=== PATIENT | female | born 1980 | race American Indian/Alaskan Native ===

== ENCOUNTER 2018-12-13 10:50 | Outpatient (CLI) | payer MEDICAID ==
[2018-12-13 11:17] VITALS: BP 114/59
== END 2018-12-13 12:15 | disposition home or self-care (01) ==
LOC: TRG 10:50
PROVIDERS: ATTEND Obstetrics & Gynecology
DX: O26.853 Spotting complicating pregnancy, third trimester (principal); Z3A.39 39 weeks gestation of pregnancy
CPT/HCPCS: 59025

== ENCOUNTER 2018-12-15 08:25 | Inpatient (IN) | payer MEDICAID ==
[2018-12-15] MEDS ORDERED: STADOL IV PRN (10:16)
[2018-12-15] MEDS ORDERED: ZOFRAN IV PRN (10:16)
[2018-12-15] MEDS ORDERED: XYLOCAINE 2% INFILTRATI ONE (10:16)
[2018-12-15] MEDS ORDERED: BRETHINE SUB-Q PRN (10:16)
[2018-12-15] MEDS ORDERED: MINERAL OIL PO PRN (10:16)
[2018-12-15] MEDS ORDERED: SUBLIMAZE IV PRN (10:16)
--- NOTE | 2018-12-15 10:31 | History and Physical Report ---
History of Present Illness Date of examination: 12/15/18 Date of admission: 12/15/18 08:25 Chief complaint: Induction of labor secondary to CHTN and AMA History of present illness: 38 yo, @ 39.9 weeks gestation. Initiated care with [facility] at 7.4 wks. Care was co-manged by [facility] specialist. She presents to [facility] for IOL secondary to CHTN and AMA status. She reports + FM. Denies any VB or LOF. Her has been complicated by CHTN, Sickle cell trait and AMA. Labs: AB +, antibody negative; Rubella immune; VDRL non-immune; HBsAg negative; HIV negative; HSV-2 negative; Varicella immune; Vit D - 4.8; Gc/Chlamydia negative; Trichomonas negative; MSAFP negative; Protein total - 5.6; 24 hr protein 120; 1 hr gtt - 123; GBS negative. Past History Past Medical History: hypertension, other (Sickle cell trait) Past Surgical History: no surgical history Family/Genetic History: hypertension Social history: , lives with family, full code. denies: smoking, alcohol abuse, prescription drug abuse, IV drug use - Obstetrical History Expected Date of Delivery: 12/16/18 Actual Gestation: 39 Week(s) 6 Day(s) : 4 Para: 3 Hx # Term Pregnancies: 3 Number of Pregnancies: 0 Spontaneous Abortions: 0 Induced : 0 Number of Living Children: 3 #1 Infant Gender: Female year: 2,003 Method of Delivery: Vaginal Complications: none #2 Gender: Female year: 2,008 Birthweight: 4.082 kg Method of Delivery: Vaginal Complications: none #3 Gender: Female year: 2,010 Birthweight: 3.175 kg Method of Delivery: Vaginal Complications: none Medications and Allergies Allergies Allergy/AdvReac Type Severity Reaction Status Date / Time No Known Allergies Allergy Verified 12/13/18 10:54 Home Medications Medication Instructions Recorded Confirmed Last Taken Type Labetalol [Labetalol 200mg TAB] 1 tab PO DAILY 12/11/18 12/13/18 12/13/18 10:00 History 1 Vit-Fe Fumar-FA [ 1 tab PO QDAY 12/13/18 12/13/18 12/12/18 09:00 History Vitamin] 1 Active Meds: Active Medications Ephedrine Sulfate (Ephedrine Sulfate) 10 mg IV Q2M PRN PRN Reason: Hypotension Oxytocin/Sodium Chloride (Pitocin/Ns 20 Unit/1000ml Drip) 20 units in 1,000 mls @ 125 mls/hr IV DIRECT JOSE Lactated Ringer's (Lactated Ringers) 1,000 mls @ 125 mls/hr IV DIRECT JOSE Mineral Oil (Mineral Oil) 30 ml PO QHS PRN PRN Reason: Constipation Review of Systems All systems: negative Genitourinary: contractions (irregular, not very painful) - Vital Signs Vital signs: Vital Signs Pulse Pulse Ox 97 H 100 12/15/18 08:49 12/15/18 08:49 Temp Pulse Resp BP Pulse Ox 89 16 116/79 99 12/15/18 09:27 12/15/18 09:27 12/15/18 09:27 12/15/18 09:27 - Physical Exam Breasts: Positive: deferred Cardiovascular: Regular rate Lungs: Positive: Normal air movement Abdomen: Positive: other (gravid) Genitourinary (Female): Positive: normal external genitalia, normal perenium Vagina: Positive: normal moisture Cervix: Positive: other (very posterior) Uterus: Positive: other (S=D) Extremities: Positive: normal Deep Tendon Reflex Grade: Normal +2 - Obstetrical FHR: category 1 Uterine Contraction Monitor Mode: External Cervical Dilatation: 1.5 Cervical Effacement Percentage: 50 station: -3 Uterine Contraction Pattern: Irregular Uterine Tone Measurement Phase: Resting Uterine Contraction Intensity: Mild Results All other labs normal. Assessment and Plan - Patient Problems (1) Encounter for induction of labor Current Visit: Yes Status: Acute Plan to address problem: Admit to L & D Cervidil, vaginally x 12 hrs as tolerated Pain meds as desired Anticipate (2) 39 weeks gestation of Current Visit: Yes Status: Acute (3) Advanced maternal age (AMA) in Current Visit: Yes Status: Acute (4) Chronic hypertension Current Visit: Yes Status: Acute Plan to address problem: Monitor B/P q hr Notify provider for B/Ps > 160/110
[2018-12-15] MEDS ORDERED: PITOCin/NS 20 UNIT/1000ML DRIP 20 UNITS/1,000 ML BAG IV SCH (11:00)
[2018-12-15] MEDS ORDERED: CERVIDIL VG ONE (11:00)
[2018-12-15] MEDS: LACTATED RINGERS 1,000 ML IV SCH ×2 (11:20→18:42)
[2018-12-15 11:36] LABS: Hematocrit 35.9 % (30.3-42.9); Hemoglobin 12.4 gm/dl (10.1-14.3); Mean Corpuscular HGB Conc 35 % (30-34); Mean Corpuscular Volume 95 fl (79-97); Red Cell Distribution Width 13.8 % (13.2-15.2)
[2018-12-15 12:44] LABS: Platelet Count 150 K/mm3 (140-440)
--- NOTE | 2018-12-15 19:59 | Event Note ---
Date: 12/15/18 Assumed care of patient at 17:30. Patient is undergoing cervical ripening and induction of labor due to chronic hypertension. Discussed with patient risks and benefits of cervical ripening and Pitocin induction of labor. Patient consented to cervical ripening and Pitocin induction of labor. US ordered for EFW. Category 1 heart rate tracing. BPs stable.
--- NOTE | 2018-12-15 22:03 | Ultrasound Report ---
ULTRASOUND OBSTETRIC 12/15/2018 Indication: Evaluate well-being. History of labor. COMPARISON: None. Findings: There is a single intrauterine . BPD = 9.4 cm = 38 weeks, 0 day(s). Head circumference = 33.1 cm = 37 weeks, 5 day(s). Abdominal circumference = 34.3 cm = 38 weeks, 1 day(s). Femur length = 7.5 cm = 38 weeks, 4 day(s). Overall estimated sonographic age = 38 weeks, 1 day(s). heart rate is 135 beats per minute. Estimated weight is 3427 grams position is cephalic. Placenta is posterior and grade 2 . Amniotic fluid volume within normal limits. Impression: 1. Single living intrauterine with estimated sonographic age of 38 weeks, 1 day(s). Signer Name: Isatu Reed MD Signed: 12/15/2018 9:58 PM Workstation Name: [id number]
--- NOTE | 2018-12-16 00:06 | Event Note ---
Date: 12/16/18 Cervidil removed. SVE 2-3/60/-3. Contractions irregular. Category 1 heart rate tracing.
[2018-12-16] MEDS ORDERED: PITOCin/NS 30 UNIT/500ML 30,000 MILLIUNITS/500 ML BAG IV ONE (03:43)
[2018-12-16] MEDS: LACTATED RINGERS 1,000 ML IV SCH ×3 (04:15→19:23)
--- NOTE | 2018-12-16 07:18 | Progress Note ---
Assessment and Plan A: at 40 weeks gestation. Chronic hypertension. GBS negative. P: Pitocin induction of labor. Anticipate vaginal . Subjective - Subjective Date of service: 12/16/18 Principal diagnosis: at 40 weeks gestation; chronic HTN Interval history: Patient is having labor induced at term due to chronic hypertension. Patient had cervidil removed at midnight. She is now receiving Pitocin for induction of labor. Denies LOF or VB. Reports active movement. Patient reports: movement normal, contractions, no new complaints, no loss of fluid, no vaginal bleeding Objective - Vital Signs Vital Signs: Vital Signs - 12hr 12/15/18 12/15/18 12/15/18 19:19 19:24 19:29 Pulse Rate 82 75 75 Blood Pressure O2 Sat by Pulse 98 99 100 Oximetry 12/15/18 12/15/18 12/15/18 19:34 19:39 19:44 Pulse Rate 81 73 88 Blood Pressure O2 Sat by Pulse 100 99 99 Oximetry 12/15/18 12/15/18 12/15/18 19:49 19:54 19:59 Pulse Rate 86 68 89 Blood Pressure O2 Sat by Pulse 98 98 99 Oximetry 12/15/18 12/15/18 12/15/18 20:04 20:09 20:14 Pulse Rate 82 77 78 Blood Pressure O2 Sat by Pulse 97 98 98 Oximetry 12/15/18 12/15/18 12/15/18 20:19 20:24 20:29 Pulse Rate 77 71 72 Blood Pressure O2 Sat by Pulse 99 98 100 Oximetry 12/15/18 12/15/18 12/15/18 20:34 20:39 20:44 Pulse Rate 87 74 71 Blood Pressure O2 Sat by Pulse 100 99 99 Oximetry 12/15/18 12/15/18 12/15/18 20:49 20:54 20:59 Pulse Rate 81 70 70 Blood Pressure O2 Sat by Pulse 97 100 99 Oximetry 12/15/18 12/15/18 12/15/18 21:04 21:09 21:14 Pulse Rate 65 76 75 Blood Pressure O2 Sat by Pulse 98 99 98 Oximetry 12/15/18 12/15/18 12/15/18 21:19 21:24 21:29 Pulse Rate 75 80 87 Blood Pressure O2 Sat by Pulse 98 99 100 Oximetry 12/15/18 12/15/18 12/15/18 21:34 21:39 21:44 Pulse Rate 88 79 70 Blood Pressure O2 Sat by Pulse 99 99 100 Oximetry 12/15/18 12/15/18 12/15/18 21:49 21:54 21:59 Pulse Rate 78 80 66 Blood Pressure O2 Sat by Pulse 100 99 99 Oximetry 12/15/18 12/15/18 12/15/18 22:04 22:09 22:14 Pulse Rate 69 68 73 Blood Pressure O2 Sat by Pulse 99 99 100 Oximetry 12/15/18 12/15/18 12/15/18 22:19 22:24 22:38 Pulse Rate 73 83 76 Blood Pressure 134/76 O2 Sat by Pulse 99 100 Oximetry 12/15/18 12/15/18 12/15/18 22:39 22:44 22:49 Pulse Rate 90 65 63 Blood Pressure O2 Sat by Pulse 99 98 97 Oximetry 12/15/18 12/15/18 12/15/18 22:54 22:59 23:04 Pulse Rate 72 69 68 Blood Pressure O2 Sat by Pulse 97 98 97 Oximetry 12/15/18 12/15/18 12/15/18 23:09 23:14 23:19 Pulse Rate 62 73 69 Blood Pressure O2 Sat by Pulse 99 98 97 Oximetry 12/15/18 12/15/18 12/15/18 23:24 23:29 23:34 Pulse Rate 89 63 76 Blood Pressure O2 Sat by Pulse 97 97 97 Oximetry 12/15/18 12/15/18 12/15/18 23:39 23:44 23:55 Pulse Rate 77 89 83 Blood Pressure O2 Sat by Pulse 97 97 100 Oximetry 12/16/18 12/16/18 12/16/18 00:00 00:05 00:10 Pulse Rate 78 91 H 63 Blood Pressure O2 Sat by Pulse 100 99 99 Oximetry 12/16/18 12/16/18 12/16/18 00:15 00:20 00:25 Pulse Rate 79 62 65 Blood Pressure O2 Sat by Pulse 100 99 99 Oximetry 12/16/18 12/16/18 12/16/18 00:30 00:35 00:40 Pulse Rate 67 64 82 Blood Pressure O2 Sat by Pulse 99 99 99 Oximetry 12/16/18 12/16/18 12/16/18 00:46 00:51 00:56 Pulse Rate 89 89 92 H Blood Pressure O2 Sat by Pulse 97 99 98 Oximetry 12/16/18 12/16/18 12/16/18 01:01 01:06 01:11 Pulse Rate 79 77 75 Blood Pressure O2 Sat by Pulse 97 97 96 Oximetry 12/16/18 12/16/18 12/16/18 01:16 01:21 01:26 Pulse Rate 73 78 62 Blood Pressure O2 Sat by Pulse 98 97 99 Oximetry 12/16/18 12/16/18 12/16/18 01:31 01:36 01:41 Pulse Rate 68 82 67 Blood Pressure O2 Sat by Pulse 98 98 98 Oximetry 12/16/18 12/16/18 12/16/18 01:46 01:52 01:57 Pulse Rate 98 H 103 H 82 Blood Pressure O2 Sat by Pulse 100 100 100 Oximetry 12/16/18 12/16/18 12/16/18 02:02 02:07 02:12 Pulse Rate 105 H 84 92 H Blood Pressure O2 Sat by Pulse 99 100 99 Oximetry 12/16/18 12/16/18 12/16/18 02:17 02:22 02:27 Pulse Rate 64 74 69 Blood Pressure O2 Sat by Pulse 99 99 100 Oximetry 12/16/18 12/16/18 12/16/18 02:32 05:02 05:07 Pulse Rate 99 H 80 76 Blood Pressure O2 Sat by Pulse 100 100 100 Oximetry 12/16/18 12/16/18 12/16/18 05:12 05:17 05:22 Pulse Rate 74 77 67 Blood Pressure O2 Sat by Pulse 98 97 98 Oximetry 12/16/18 12/16/18 12/16/18 05:27 05:32 05:37 Pulse Rate 67 73 67 Blood Pressure O2 Sat by Pulse 98 98 97 Oximetry 12/16/18 12/16/18 12/16/18 05:42 05:47 05:52 Pulse Rate 77 65 68 Blood Pressure O2 Sat by Pulse 97 98 98 Oximetry 12/16/18 12/16/18 12/16/18 05:57 06:02 06:07 Pulse Rate 69 75 84 Blood Pressure O2 Sat by Pulse 98 99 97 Oximetry 12/16/18 12/16/18 12/16/18 06:12 06:17 06:22 Pulse Rate 76 70 71 Blood Pressure O2 Sat by Pulse 97 97 98 Oximetry 12/16/18 12/16/18 12/16/18 06:27 06:32 06:37 Pulse Rate 97 H 72 94 H Blood Pressure O2 Sat by Pulse 100 100 99 Oximetry 12/16/18 12/16/18 12/16/18 06:42 06:47 06:52 Pulse Rate 74 88 77 Blood Pressure O2 Sat by Pulse 98 98 100 Oximetry 12/16/18 12/16/18 12/16/18 06:54 06:57 07:02 Pulse Rate 64 80 72 Blood Pressure 118/63 O2 Sat by Pulse 100 100 Oximetry 12/16/18 12/16/18 07:07 07:12 Pulse Rate 75 68 Blood Pressure O2 Sat by Pulse 100 98 Oximetry - Exam Abdomen: Present: normal appearance, soft. Absent: distention, tenderness, guarding, rigidity Uterus: Present: normal, fundal height above umbilicus. Absent: tenderness FHR: category 1 Uterine Contraction Monitor Mode: External Uterine Contraction Frequency (min): Q 2-4 minutes Uterine Contraction Intensity: Mild Extremities: normal - Labs Labs: Abnormal Labs 12/15/18 10:43 MCH 33 H MCHC 35 H Laboratory Results - last 24 hr 12/15/18 12/15/18 10:43 10:43 WBC 6.3 RBC 3.80 Hgb 12.4 Hct 35.9 MCV 95 MCH 33 H MCHC 35 H RDW 13.8 Plt Count 150 Blood Type AB POSITIVE Antibody Screen Negative
[2018-12-16] MEDS: PITOCin/NS 30 UNIT/500ML 30 UNITS/500 ML BAG IV SCH ×2 (10:31→20:01)
[2018-12-16] MEDS ORDERED: NORMODYNE PO SCH (22:00)
--- NOTE | 2018-12-17 02:49 | Event Note ---
Date: 12/17/18 SVE: /-3/BBOW.
[2018-12-17] MEDS ORDERED: NORCO 5/325 PO PRN (05:11)
[2018-12-17] MEDS ORDERED: DULCOLAX PR PRN (05:11)
[2018-12-17] MEDS ORDERED: LANSINOH TP PRN (05:11)
[2018-12-17] MEDS ORDERED: BENADRYL PO PRN (05:11)
[2018-12-17] MEDS ORDERED: MILK OF MAGNESIA PO PRN (05:11)
[2018-12-17] MEDS ORDERED: TUCKS PAD TP PRN (05:11)
--- NOTE | 2018-12-17 05:22 | Procedure Note ---
OB Delivery Note - Delivery Date of Delivery: 12/17/18 Surgeon: JAIME SCHRADER Estimated blood loss: 200cc - Vaginal Delivery presentation: vertex Delivery position: OA Intrapartum events: meconium Delivery induction: oxytocin Delivery augmentation: rupture of membranes Delivery monitor: external FHT, external uterine Route of delivery: Delivery placenta: spontaneous Delivery cord: 3 umbilical vessels Episiotomy: none Delivery laceration: none Anesthesia: none Delivery comments: bradycardia noted when cervix became completely dilated; Dr. Toure was called to birthing room to expedite but patient was able to push quickly and well with direction and baby was delivered spontaneously. Spontaneous vaginal delivery at 04:53 of liveborn male infant weighing 8 lb. 3 oz over intact perineum with apgars of 7/9. Suprapubic pressure given to facilitate delivery of anterior shoulder. Meconium stained amniotic fluid. 3 vessel cord double clamped and cut and baby taken to radiant warmer for suctioning by NICU team who was called to delivery. Spontaneous cry and respirations. Spontaneous delivery of intact placenta and membranes by perez mechanism. EBL 200 cc. Pitocin to IV fluids after delivery of placenta. Fundus firm and midline. Vaginal sweep negative. No lacerations noted. Sponge count correct. Mother and baby stable.
[2018-12-17] MEDS ORDERED: SODIUM CHLORIDE FLUSH SYRINGE 10 ML IV NR (06:00)
[2018-12-17] MEDS: IBUPROFEN PO SCH ×3 (10:16→18:00)
[2018-12-17 17:14] LABS: Hematocrit 31.9 % (30.3-42.9); Hemoglobin 11.1 gm/dl (10.1-14.3)
[2018-12-17] MEDS ORDERED: MYLICON PO PRN (18:21)
[2018-12-17] MEDS: TYLENOL PO PRN (21:34)
[2018-12-17] MEDS: NORMODYNE PO SCH (22:03)
--- NOTE | 2018-12-18 09:59 | Progress Note ---
Assessment and Plan - Patient Problems (1) Status post normal vaginal delivery Current Visit: Yes Status: Acute Plan to address problem: PPD 1 - stable Continue routine PP orders Discharge to home 12/19/18 Follow up at [facility] in 1-2 weeks for Control Consult and in 6 weeks for exam (2) Chronic hypertension Current Visit: Yes Status: Acute Plan to address problem: Asymptomatic Continue antihypertensive therapy Subjective - Subjective Date of service: 12/18/18 Principal diagnosis: PPD #1; s/p , Chronic HTN Interval history: see H&P, Event Notes, OB Progress Note and OB Delivery Procedure Note Patient reports: appetite normal, voiding normally, pain well controlled, ambulating normally, other (denies headache, visual disturbances or RUQ pain), no dizzy ambulation [place]: doing well, nursing well, bottle feeding Objective - Vital Signs Latest vital signs: Vital Signs Temp Pulse Resp BP Pulse Ox 12/18/18 00:32 98.8 F 71 18 126/79 98 12/17/18 22:03 82 131/75 12/17/18 15:50 99.5 F 87 18 132/71 97 12/17/18 12:02 97.8 F 74 18 113/65 98 Intake and Output 12/17/18 12/18/18 12/18/18 23:59 07:59 15:59 Intake Total 840 480 Output Total 1050 Balance -210 480 Intake: Oral 480 Intake, Free Water 360 480 Output: Urine 1050 Void 1050 Other: Total, Intake Amount 480 Total, Output Amount 450 # Voids Void 3 1 - Exam Cardiovascular: Present: Regular rate Lungs: Present: Clear to auscultation, Normal air movement Abdomen: Present: normal appearance, soft Vulva: both: normal Uterus: Present: normal, firm, fundal height at umbilicus Extremities: Present: edema (BLE, trace) Comments: small lochia
--- NOTE | 2018-12-18 10:06 | Discharge Summary ---
Providers - Providers Date of Admission: 12/15/18 08:25 Date of discharge: 12/18/18 Attending physician: AMEENA RILEY MD Primary care physician: [facility] Hospitalization Reason for admission: induction of labor, IUP at term Delivery: Episiotomy: none Laceration: none Other procedures: none complications: none Discharge diagnosis: IUP at term delivered [place] baby: male Hospital course: Uncomplicated Condition at discharge: Stable Disposition: DC-01 TO HOME OR SELFCARE - Discharge Diagnoses (1) Status post normal vaginal delivery Status: Acute (2) Chronic hypertension Status: Acute Comment: Reviewed signs and symptoms of Superimposed pre- eclampsia Continue Labetalol 200mg PO BID Plan - Provider Discharge Summary Activity: routine, no sex for 6 weeks, no heavy lifting 4 weeks, no strenuous exercise Diet: routine Instructions: routine Additional instructions: [] Smoking cessation referral if applicable(refer to patient education folder for contact #) [] Refer to [facility] Booklet Call your doctor immediately for: * Fever > 100.5 * Heavy vaginal bleeding ( >1 pad per hour) * Severe persistent headache * Shortness of breath * Reddened, hot, painful area to leg or breast * Drainage or odor from incision. * Keep incision clean and dry at all times and follow doctor's instructions regarding bathing/showering - Follow up plan Follow up: PRIMARY CARE, [Primary Care Provider] - 14 Days (Follow up at [facility] in 1-2 weeks for Control Consult and in 6 weeks for exam)
[2018-12-18] MEDS: NORMODYNE PO SCH ×2 (10:09→21:58)
[2018-12-18] MEDS: IBUPROFEN PO SCH ×3 (11:42→17:37)
[2018-12-18] MEDS: TYLENOL PO PRN (20:02)
[2018-12-19] MEDS: IBUPROFEN PO SCH ×4 (00:41→18:39)
[2018-12-19] MEDS: NORMODYNE PO SCH ×2 (09:55→22:48)
[2018-12-19] MEDS: TYLENOL PO PRN (16:09)
[2018-12-20 00:58] LABS: Bilirubin,Urine NEG (Negative); Blood,Urine LG (Negative); Color,Urine Red (Yellow); Urobilinogen,Urine < 2.0 mg/dL (<2.0)
[2018-12-20 01:09] LABS: RBC,Urine > 182.0 /HPF (0.0-6.0); WBC,Urine > 182.0 /HPF (0.0-6.0)
[2018-12-20 01:10] LABS: Mucus,Urine Few /HPF
[2018-12-20] MEDS: IBUPROFEN PO SCH ×3 (01:33→12:00)
[2018-12-20 06:12] LABS: Hematocrit 34.3 % (30.3-42.9); Mean Corpuscular HGB Conc 35 % (30-34); Mean Corpuscular Volume 93 fl (79-97); Platelet Count 193 K/mm3 (140-440); Red Blood Count 3.67 M/mm3 (3.65-5.03); Red Cell Distribution Width 13.5 % (13.2-15.2)
[2018-12-20 06:41] LABS: Alanine Aminotransferase 17 units/L (7-56)
[2018-12-20 07:01] LABS: Uric Acid 5.4 mg/dL (3.5-7.6)
[2018-12-20 09:19] VITALS: BP 145/77
[2018-12-20] MEDS: NORMODYNE PO SCH (10:00)
== END 2018-12-20 13:00 | disposition home or self-care (01) | DRG 774 ==
LOC: LD 08:25 → OB 12-17 07:17
PROVIDERS: ADMIT Obstetrics & Gynecology; ATTEND Obstetrics & Gynecology
PROC: 10E0XZZ Delivery of Products of Conception, External Approach (ICD-10-PCS; principal; 2018-12-17)
PROC: 3E0P7VZ Introduction of Hormone into Female Reproductive, Via Natural or Artificial Opening (ICD-10-PCS; 2018-12-17)
PROC: 3E033VJ Introduction of Other Hormone into Peripheral Vein, Percutaneous Approach (ICD-10-PCS; 2018-12-17)
DX: O10.92 Unspecified pre-existing hypertension complicating childbirth (principal); O77.0 Labor and delivery complicated by meconium in amniotic fluid; O76 Abnormality in fetal heart rate and rhythm complicating labor and delivery; Z3A.39 39 weeks gestation of pregnancy; Z37.0 Single live birth
CPT/HCPCS: 36415; 59200; 76816; 81001; 82565; 83615; 84450; 84460; 84550; 85014; 85018; 85027; 86592; 86850; 86900; 86901; G0378; A6250; J0595; J2590; J7120

== ENCOUNTER 2019-01-09 11:26 | Emergency (ER) | payer MEDICAID ==
--- NOTE | 2019-01-09 11:53 | Event Note ---
ED Screening Note Date of service: 01/09/19 Time: 11:50 ED Screening Note: 39 y o female 2 weeks PP with PMH of chronic HTN presents with high blood pressure sent here from her obgyn current meds: labetalol, procardia denies cp,sob,fraire, abd pain This initial assessment/diagnostic orders/clinical plan/treatment(s) is/are subject to change based on patients health status, clinical progression and re- assessment by fellow clinical providers in the ED. Further treatment and workup at subsequent clinical providers discretion. Patient/guardian urged not to elope from the ED as their condition may be serious if not clinically assessed and managed. Initial orders include: cbc,cmp clonidine 0.2mg in room
[2019-01-09 12:16] LABS: Basophils # (Auto) 0.1 K/mm3 (0.0-0.1); Basophils % (Auto) 0.8 % (0.0-1.8); Eosinophils # (Auto) 0.1 K/mm3 (0.0-0.4); Eosinophils % (Auto) 1.1 % (0.0-4.3); Hematocrit 42.8 % (30.3-42.9); Hemoglobin 14.9 gm/dl (10.1-14.3); Lymphocytes # (Auto) 1.9 K/mm3 (1.2-5.4); Lymphocytes % (Auto) 29.2 % (13.4-35.0); Mean Corpuscular HGB Conc 35 % (30-34); Mean Corpuscular Volume 89 fl (79-97); Monocytes # (Auto) 0.6 K/mm3 (0.0-0.8); Monocytes % (Auto) 9.8 % (0.0-7.3); Platelet Count 286 K/mm3 (140-440); Red Blood Count 4.81 M/mm3 (3.65-5.03); Red Cell Distribution Width 12.7 % (13.2-15.2)
[2019-01-09 12:38] LABS: Alanine Aminotransferase 23 units/L (7-56); Albumin 4.8 g/dL (3.9-5); BUN/Creatinine Ratio 12; Blood Urea Nitrogen 7 mg/dL (7-17); Calcium 10.5 mg/dL (8.4-10.2); Hemolysis Index 8
[2019-01-09 13:15] LABS: Bilirubin,Urine NEG (Negative); Blood,Urine SM (Negative); Color,Urine Colorless (Yellow); Protein,Urine <15 mg/dL mg/dL (Negative); RBC,Urine < 1.0 /HPF (0.0-6.0); Urobilinogen,Urine < 2.0 mg/dL (<2.0); WBC,Urine < 1.0 /HPF (0.0-6.0)
--- NOTE | 2019-01-09 14:39 | Emergency Department Report ---
ED General Adult HPI - General Chief complaint: High BP Stated complaint: HYPERTENSION Time Seen by Provider: 01/09/19 12:25 Source: patient, family Mode of arrival: Ambulatory Limitations: No Limitations - History of Present Illness Initial comments: 39-year-old female with a past medical history of hypertension with vaginal delivery possibly 3 weeks ago presents to the hospital with complaints of elevated blood pressure. Patient went to her [facility] office for follow-up visits and she was sent to the ER due to BP elevation. Patient takes labetalol 100 mg 3 times a day, Procardia 30 mg daily, hydrochlorothiazide 12.5 mg daily, and by mouth potassium 10 mEq daily. Patient also take Xanax 0.25 mg daily and was prescribed 15 tablets on January 01. Patient states she's been compliant with her medications. She is almost due for her second dose of labetalol at time of my evaluation. Patient denies headache, blurred vision, leg edema, chest pain, or shortness of breath. Patient has a history of hypertension and was on blood pressure medications prior to her and throughout. She was recently admitted for preeclampsia and was discharged on January 01 on the medications listed above. Patient's been taking her blood pressure at home and states his been in normal range. Patient's [facility]: [facility]. PMD: Dr. Chan Severity scale (0 -10): 0 - Related Data Home Medications Medication Instructions Recorded Confirmed Last Taken Vit-Fe Fumar-FA [ 1 tab PO QDAY 12/13/18 12/29/18 12/27/18 09:00 Vitamin] Previous Rx's Medication Instructions Recorded Last Taken Type ALPRAZolam [Xanax TAB] 0.25 mg PO QDAY #15 tablet 01/01/19 Unknown Rx Labetalol HCl [Labetalol 300mg TAB] 300 mg PO BID #30 tablet 01/01/19 Unknown Rx Labetalol [Labetalol 100mg TAB] 300 mg PO Q8H #90 tablet 01/01/19 Unknown Rx Labetalol [Labetalol 200mg TAB] 1 tab PO DAILY 60 Days #60 tablet 01/01/19 Unknown Rx NIFEdipine XL [Procardia Xl] 30 mg PO QDAY #20 tablet 01/01/19 Unknown Rx Potassium Chloride [K-Dur] 10 meq PO QDAY 30 Days #15 tablet 01/01/19 Unknown Rx hydroCHLOROthiazide [HCTZ] 12.5 mg PO QDAY 90 Days #90 capsule 01/01/19 Unknown Rx Allergies Allergy/AdvReac Type Severity Reaction Status Date / Time No Known Allergies Allergy Verified 12/13/18 10:54 ED Review of Systems ROS: Stated complaint: HYPERTENSION Other details as noted in HPI Comment: All other systems reviewed and negative ED Past Medical Hx - Past Medical History Previous Medical History?: Yes Hx Hypertension: Yes (CHTN) Hx Congestive Heart Failure: No Hx Diabetes: No Hx Deep Vein Thrombosis: No Hx Renal Disease: No Hx Sickle Cell Disease: Yes (TRAIT) Hx Seizures: No Hx Asthma: No Hx COPD: No Hx HIV: No - Surgical History Past Surgical History?: No - Social History Smoking Status: Never Smoker Substance Use Type: Alcohol - Medications Home Medications: Home Medications Medication Instructions Recorded Confirmed Last Taken Type Vit-Fe Fumar-FA [ 1 tab PO QDAY 12/13/18 12/29/18 12/27/18 09:00 History Vitamin] ALPRAZolam [Xanax TAB] 0.25 mg PO QDAY #15 tablet 01/01/19 Unknown Rx Labetalol HCl [Labetalol 300mg TAB] 300 mg PO BID #30 tablet 01/01/19 Unknown Rx Labetalol [Labetalol 100mg TAB] 300 mg PO Q8H #90 tablet 01/01/19 Unknown Rx Labetalol [Labetalol 200mg TAB] 1 tab PO DAILY 60 Days #60 tablet 01/01/19 Unknown Rx NIFEdipine XL [Procardia Xl] 30 mg PO QDAY #20 tablet 01/01/19 Unknown Rx Potassium Chloride [K-Dur] 10 meq PO QDAY 30 Days #15 tablet 01/01/19 Unknown Rx hydroCHLOROthiazide [HCTZ] 12.5 mg PO QDAY 90 Days #90 capsule 01/01/19 Unknown Rx ED Physical Exam - General Limitations: No Limitations - Other Other exam information: Gen.: No acute distress Head: Atraumatic Eyes: Normal appearance ENT: Moist mucous membranes Neck: Normal appearance, no posterior midline tenderness, no meningismus Chest: Clear to auscultation bilaterally Cardiovascular: Regular rate and rhythm Abdomen: Normal appearance, soft, nontender, no rebound or guarding, normal bowel sounds Back: Normal appearance, nontender Extremity: Full range of motion, normal appearance, no leg edema or calf tenderness Neuro: Alert and oriented 3, clear speech, no focal motor or sensory deficit Psychiatric: Appropriate Skin: No rash ED Course Vital Signs 01/09/19 01/09/19 01/09/19 11:32 13:48 14:15 Temperature 98.5 F Pulse Rate 99 H 91 H 92 H Respiratory 116 H 18 17 Rate Blood Pressure 183/115 Blood Pressure 149/103 136/89 [Left] O2 Sat by Pulse 99 100 100 Oximetry 01/09/19 14:16 Temperature Pulse Rate Respiratory 17 Rate Blood Pressure Blood Pressure [Left] O2 Sat by Pulse 100 Oximetry - Consultations Consultation #1: 01/09/19 14:37 case d/w DR Raymond ob button maker for [facility], rec close f/u with pmd for bp managment ED Medical Decision Making - Lab Data Result diagrams: 01/09/19 12:06 01/09/19 12:06 Lab Results 01/09/19 01/09/19 01/09/19 Range/Units 12:06 12:06 12:41 WBC 6.5 (4.5-11.0) K/mm3 RBC 4.81 (3.65-5.03) M/mm3 Hgb 14.9 H (10.1-14.3) gm/dl Hct 42.8 (30.3-42.9) % MCV 89 (79-97) fl MCH 31 (28-32) pg MCHC 35 H (30-34) % RDW 12.7 L (13.2-15.2) % Plt Count 286 (140-440) K/mm3 Lymph % (Auto) 29.2 (13.4-35.0) % [place] % (Auto) 9.8 H (0.0-7.3) % Eos % (Auto) 1.1 (0.0-4.3) % Baso % (Auto) 0.8 (0.0-1.8) % Lymph # 1.9 (1.2-5.4) K/mm3 Warrick # 0.6 (0.0-0.8) K/mm3 Eos # 0.1 (0.0-0.4) K/mm3 Baso # 0.1 (0.0-0.1) K/mm3 Seg Neutrophils % 59.1 (40.0-70.0) % Seg Neutrophils # 3.9 (1.8-7.7) K/mm3 Sodium 138 (137-145) mmol/L Potassium 4.2 (3.6-5.0) mmol/L Chloride 99.3 (98-107) mmol/L Carbon Dioxide 24 (22-30) mmol/L Anion Gap 19 mmol/L BUN 7 (7-17) mg/dL Creatinine 0.6 L (0.7-1.2) mg/dL Estimated GFR > 60 ml/min BUN/Creatinine Ratio 12 % Glucose 115 H (65-100) mg/dL Calcium 10.5 H (8.4-10.2) mg/dL Total Bilirubin 0.60 (0.1-1.2) mg/dL AST 20 (5-40) units/L ALT 23 (7-56) units/L Alkaline Phosphatase 96 (35-129) units/L Total Protein 8.6 H (6.3-8.2) g/dL Albumin 4.8 (3.9-5) g/dL Albumin/Globulin Ratio 1.3 % Urine Color Colorless (Yellow) Urine Turbidity Clear (Clear) Urine pH 8.0 H (5.0-7.0) Ur Specific [place] 1.005 (1.003-1.030) Urine Protein <15 mg/dl (Negative) mg/dL Urine Glucose (UA) Neg (Negative) mg/dL Urine Ketones Neg (Negative) mg/dL Urine Blood Sm (Negative) Urine Nitrite Neg (Negative) Urine Bilirubin Neg (Negative) Urine Urobilinogen < 2.0 (<2.0) mg/dL Ur Leukocyte Esterase Neg (Negative) Urine WBC (Auto) < 1.0 (0.0-6.0) /HPF Urine RBC (Auto) < 1.0 (0.0-6.0) /HPF U Epithel Cells (Auto) 2.0 (0-13.0) /HPF - Medical Decision Making Patient presenting with signs and symptoms of uncontrolled blood pressure which is asymptomatic. Lab work, physical symptoms, and exam are not suggestive of preeclampsia. Patient received her afternoon dose labetalol 100 mg with significant improvement in her blood pressure. She remains it asymptomatic during her ED stay. Case discussed with [employer] and follow up with PMD encouraged - Differential Diagnosis hypertensive emergency, preeclampsia, uncontrolled blood pressure Critical Care Time: No Critical care attestation.: If time is entered above; I have spent that time in minutes in the direct care of this critically ill patient, excluding procedure time. ED Disposition Clinical Impression: Uncontrolled hypertension Disposition: - TO HOME OR SELFCARE Is pt being admited?: No Does the pt Need Aspirin: No Condition: Stable Instructions: Hypertension (ED) Additional Instructions: Continue your current medication as prescribed. Follow-up with your primary care doctor this week for reevaluation. Continue to monitor your blood pressure at home. Return if symptoms worsen as indicated by your discharge instructions. Referrals: MD Dustin [Other] - 2-3 Days Time of Disposition: 14:56
[2019-01-09 15:35] VITALS: BP 149/94
== END 2019-01-09 15:31 | disposition home or self-care (01) ==
LOC: ED 11:26
DX: I10 Essential (primary) hypertension (principal); Z79.899 Other long term (current) drug therapy
CPT/HCPCS: 36415; 80053; 81001; 85025